=== PATIENT | female | born 1990 | race Caucasian/White ===

== ENCOUNTER 2020-11-14 13:41 | Outpatient (REF) | payer OTHER, SELFPAY ==
[2020-11-16 09:30] LABS: HBS Num1 11.84 mIU/mL (0-7.99)
[2020-11-16 10:28] LABS: HBS Num3 11.73 mIU/mL (0-7.99); ~Hepatitis B Surface Antibody GRAYZONE (Nonreactive)
== END 2020-11-14 13:42 | disposition home or self-care (01) ==
LOC: HO.LAB 13:41
PROVIDERS: PCP Internal Medicine; Visit Provider Internal Medicine
DX: Z00.00 Encounter for general adult medical examination without abnormal findings (principal)
CPT/HCPCS: 36415; 86706

== ENCOUNTER 2020-11-16 06:30 | Outpatient (REF) | payer OTHER, SELFPAY ==
[2020-11-18 18:46] LABS: TS Negative Control Passed; TS Panel A 0; TS Panel B 0; TS Positive Control Passed; TSpotTB Negative (SeeBelow)
== END 2020-11-16 06:31 | disposition home or self-care (01) ==
LOC: HO.LAB 06:30
PROVIDERS: PCP Internal Medicine; Visit Provider Internal Medicine
DX: Z11.1 Encounter for screening for respiratory tuberculosis (principal)
CPT/HCPCS: 36415; 86481

== ENCOUNTER 2021-07-14 09:00 | Outpatient (RCR) | payer OTHER, SELFPAY ==
--- NOTE | 2021-06-28 15:53 | MHC.PT.EP ---
[facility] [place] Office [place] Office [place] [facility] [address] Marcela Knott [address] [phone] F: [phone] F: [phone] F: [phone] F: [phone] Physical Therapy Plan of Care Date of Evaluation: Date of Surgery: BLOOD PATCH ABOUT END OF MAY AT [facility] Diagnosis: DORSALGIA. Assessment: Pt IS 31 YO F REFERRED TO PT FROM DR CLAY WITH DORSALGIA. Pt REPORTS SHE HAD A BABY (04/28/21..GIRL) WITH A COMPLICATED EPIDURAL PROCEDURE AND POST ANGEL, WAS SENT HOME BUT DAYS LATER HAVING SIGNIF ANGEL WENT TO ER, SENT TO [facility] TREATED FOR PRE-ECLEMPSIA AND HAD A BLOOD PATCH DONE (THIS ABOUT 1 MONTH POST ), HAD SPENT MUCH OF THE TIME IN BED). SINCE BLOOD PATCH, LESS ANGEL BUT NOW LBP (FROM WHERE HAD EPIDURAL AND BELOW) AND L LE SXS. PRESENTS WITH L LE WEAKNESS, TRANDLENBERG GT AND PELVIC ASYMM WITH LIMITED TRUNK AND LE FLEXIBILITY AND PAIN/PARESTHESIA AFFECTING ADLS. 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 IS TO HAVE TELEVISIT WITH NEURO TOMORROW AND IS SUPPOSED TO HAVE LS X RAY. SHOULD BENEFIT FROM PT TO ADDRESS THESE ISSUES Frequency and Duration: The patient will be seen 2X/WK X 6 WKS Short Term Goals: 1. CENTRALIZE SXS 2. IMPROVED GT PATTERN (LESS LIMP) 3. Pt TO PERF 2-3 TASKS WITH PROPER BODY MECH (FOR INFANT CARE AND RTW) Skilled Nursing Goals: 1. RTW 2. DECREASED LBP AT LEAST 50% WITH ADLS 3. I HEP WITH DC EX PLAN 4. TRUNK ROM WNLS FOR FLEX AND EXT Treatment Plan: Modalities to reduce pain, spasms and effusion. Manual therapy to restore motion and function. Therapeutic exercise to improve strength and flexibility. Neuromuscular re-education for posture and balance. Therapeutic activities to return to functional activities of daily living. Electronically signed by: ALVARO CHAMPION PT Please sign and return to therapist. Thank you for your referral.
--- NOTE | 2021-08-14 14:06 | MHC.PT.DC ---
[facility] [place] Office [place] Office [place] [facility] [address] Marcela Knott [address] [phone] F: [phone] F: [phone] F: [phone] F: [phone] Physical Therapy Discharge Report Diagnosis: DORSALGIA. Date of Surgery: BLOOD PATCH ABOUT END May AT [facility] Date of Evaluation: 06/28/21 Date of Discharge: 07/21/21 Treatments to Date: 5 Cancellations to Date: No Shows to Date: Discharge Status: Improved Function Independent with HEP Patient Elected to Stop Discharge Summary: AT LAST APPT PER HUMBERTO HARMON PT, DPT.'Pt educated re: self care stretching balance and proper mechanics in relationship to sx. Pt demonstrated carryover with home program following education. Held on US due to global area not specific to one region of L lumbar. Educated re: self care/stretching program.' Pt THEN CANCELLED NEXT APPT BECAUSE HER BABY WAS SICK. THEN CALLED ON 07/21 TO DC SELF (GOING BACK TO WORK) Electronically signed by: ALVARO CHAMPION PT Please sign and return to therapist. Thank you for your referral.
== END 2021-08-14 14:07 | disposition home or self-care (01) ==
LOC: HO.PTWFD 09:00
PROVIDERS: PCP Internal Medicine; Visit Provider Internal Medicine
DX: M54.9 Dorsalgia, unspecified (principal)
CPT/HCPCS: 97014; 97110; 97140; 97162; 97530; 97535

== ENCOUNTER 2024-02-24 10:29 | Outpatient (AMB) | payer OTHER, SELFPAY ==
--- NOTE | 2024-02-24 10:29 | MHC.PC.OV ---
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: Not Required per policy Accompanied by: Self / Same As Patient Allergies No Known Allergies Allergy (Verified 02/24/24 10:30) Medication List - Last Reconciled 02/25/24 by Denis Arias MD aspirin (Neela Low Dose Aspirin) 81 mg PO ONCE labetalol 100 mg PO BID magnesium oxide 500 mg PO DAILY Tobacco use date assessed: 02/24/24 Dental Screening Dental Screen Date: 02/24/24 Did you have a dental visit in the last 12 months?: Yes Did you have a dental problem in the last 6 months where you did not have access to dental care?: No Was dental information given to patient?: Patient has dentist HPI Fatigue HPI Details fatigue for a few months PFSH Surgical History H/O LEEP Family History Father Asthma Hypertension Mother Hypertension Diabetes Maternal Grandmother Diabetes Maternal Grandfather Myocardial infarction Sister Cirrhosis of liver Social History Housing: House Alcohol intake: never Patient Tobacco Use Status: Never used Tobacco e-Cigarette/Vaping Use: Never Used Second Hand Smoke Exposure: No service: No Current occupational status: employed Cognitive needs: No Hearing needs: No Vision needs: No Questionnaire PHQ-9 Over the last 2 weeks, how often have you been bothered by any of the following problems? 1. Little interest or pleasure in doing things: not at all 2. Feeling down, depressed, or hopeless: not at all 3. Trouble falling or staying asleep, or sleeping too much: not at all 4. Feeling tired or having little energy: not at all 5. Poor appetite or overeating: not at all 6. Feeling bad about yourself - or that you are a failure or have let yourself or your family down: not at all 7. Trouble concentrating on things, such as reading the newspaper or watching television: not at all 8. Moving or speaking so slowly that other people could have noticed. Or the opposite - being so fidgety or restless that you have been moving around a lot more than usual: not at all 9. Thoughts that you would be better off or of hurting yourself in some way: not at all Total score: 0 Depression Screening Interpretation: Negative Depression Screening Done: Yes 00527 - PHQ-9 Billing: Yes Source: Developed by Drs. Willis Matthews, Serenity Baldwin, Toby Dale and colleagues, with an educational abisai from [employer]. Thrive Questionnaire Date Thrive assessed: 02/24/24 I am a: Patient What is your living situation today?: I have a steady place to live Within the past 12 months, did the food you bought not last and you didn't have the money to get more?: Never true Within the past 12 months, did you worry whether your food would run out before you got money to buy more?: Never true Do you have trouble paying for medicines?: No Do you have trouble getting transportation to medical appointments?: No Do you have trouble paying your heating and electricity bill?: No Do you have trouble taking care of your child, family member or friend?: No Do you have trouble with day-to-day activities such as bathing, preparing meals, shopping, managing finances, etc.?: No Are you currently unemployed and looking for a job?: No Are you interested in more education?: No Please select the resources that you would like help with: None THRIVE Score: 0 AUDIT C Alcohol Use Questionnaire (AUDIT-C) 1. How often do you have a drink containing alcohol?: Never 3. How often do you have six or more drinks on one occasion?: Never Total Score: 0 Score Reviewed/Action Taken: Yes ALLAN-7 AMB Questionnaire ALLAN-7 Date ALLAN - 7 assessed: 02/24/24 Feeling nervous, anxious, or on edge: 0 = Not at all Not being able to stop or control worryin = Not at all Worrying too much about different things: 0 = Not at all Trouble relaxin = Not at all Being so restless that it is hard to sit still: 0 = Not at all Becoming easily annoyed or irritable: 0 = Not at all Feeling afraid as if something awful might happen: 0 = Not at all Total ALLAN-7 score (0-4 normal; 5-9 mild; 10-14 moderate; 15-21 severe): 0 Source: Developed by Drs. Willis Matthews, Serenity Baldwin, Toby Dale and colleagues, with an educational abisai from [employer]. ALLAN-7 Assessment Billing ALLAN-7 Assessment Tool: ALLAN-7 Assessment 38062 Review of Systems Const Denies chills, Denies headache(s) and Denies weight loss ENT Denies headache(s) Card Denies chest pain, Denies syncope, Denies irregular heart rhythm and Denies dyspnea Resp Denies chest congestion, Denies cough and Denies dyspnea GI Denies abdominal pain, Denies change in stool character, Denies nausea and Denies vomiting Musc Denies deformity and Denies joint swelling Neuro Denies syncope and Denies headache(s) Physical exam (Primary Care) Vital Signs: Last Vital Signs Pulse 69 02/24/24 10:30 BP 110/62 02/24/24 10:30 Pulse Ox 99 02/24/24 10:30 Oxygen Delivery Method Room Air 02/24/24 10:30 BMI result Body Mass Index 27.0 Tobacco/Smoking Status: Tobacco use Status Tobacco use date assessed 02/24/24 02/24/24 10:31 Patient Tobacco Use Status Never used Tobacco 02/24/24 10:31 Tobacco use type 06/21/21 12:40 e-Cigarette/Vaping Use Never Used 02/24/24 10:31 PHQ-9: PHQ-9 Score PHQ-9: Total score 0 02/24/24 10:31 Depression Screening Interpretation: Negative Thrive Assessment: Date of Thrive Assessment Date Thrive assessed 02/24/24 02/24/24 10:31 Const General: cooperative, comfortable, no acute distress and alert Neck Neck: Yes no lymphadenopathy Thyroid: Thyroid normal Resp Effort & Inspection: normal respiratory effort Auscultation: clear to auscultation bilaterally Percussion: percussion normal Cardio Jugular venous distension: no JVD Palpation: normal PMI Rate: regular rate Rhythm: regular rhythm Heart sounds: S1 normal heart sound present and S2 normal heart sound present GI Inspection: Yes normal to inspection Palpation (GI): No hepatosplenomegaly present Skin General skin exam: no rashes or lesions noted Extrem General: Yes no clubbing, cyanosis or edema Assessment and Plan Assessment & Plan (1) Fatigue: Code(s): R53.83 - Other fatigue Plan: do labs Orders: Orders Complete Blood Count Auto Diff 02/24/24 Z13.0 - Encounter for screening for diseases of the blood and blood-forming organs and certain disorders involving the immune mechanism Comprehensive [place]. Panel Fast 02/24/24 Z13.9 - Encounter for screening, unspecified Thyroid Stimulating Hormone 02/24/24 Z13.29 - Encounter for screening for other suspected endocrine disorder Lipid Panel 02/24/24 Z13.220 - Encounter for screening for lipoid disorders Coding Level of Care Code Est Pt Level 3 (28619) Diagnoses Fatigue R53.83 Additional Codes ALLAN-7 Assessment Billing - ALLAN-7 Assessment Tool: ALLAN-7 Assessment 12790 ([id number])
[2024-02-24 10:30] VITALS: BP 110/62; PULSE 69; O2SAT 99; BMI 27.0
== END 2024-02-24 10:51 | disposition home or self-care (01) ==
PROVIDERS: PCP Internal Medicine; Visit Provider Internal Medicine
DX: R53.83 Other fatigue (principal)
CPT/HCPCS: 99213

== ENCOUNTER 2024-02-24 13:00 | Outpatient (REF) | payer OTHER, SELFPAY ==
[2024-02-24 13:10] LABS: MANUAL DIFF FLAG NO
[2024-02-24 13:44] LABS: Basophils Percent Auto 0.3 % (0-2); Eosinophils Absolute Auto 0.1 X10*3/uL (0.0-0.4); Eosinophils Percent Auto 1.3 % (0-4); Hematocrit 42.6 % (37.0-47.0); Hemoglobin 14.5 g/dl (12.0-16.0); Imm Gran Abs Auto 0.02 X10*3/uL (0.00-0.03); Imm Gran Pct Auto 0.3 % (0.0-0.4); Lymphocytes Absolute Auto 3.1 X10*3/uL (1.2-4.9); Lymphocytes Percent Auto 39.5 % (20-40); Mean Corpuscular Hemoglobin 30.2 pg (27.0-33.0); Mean Corpuscular Volume 88.8 fL (80.0-98.0); Monocytes Absolute Auto 0.6 X10*3/uL (0.1-1.2); Monocytes Percent Auto 7.9 % (2-11); Neutrophils Absolute Auto 3.9 x10*3/uL (2.0-8.3); Neutrophils Percent Auto 50.7 % (45-73); Platelet Count 242 X10*3/uL (160-400); Red Cell Distribution Width 12.2 % (11.0-16.0); White Blood Count 7.8 X10*3/uL (4.8-10.8)
[2024-02-24 14:14] LABS: Alanine Aminotransferase 13 U/L (0-31); Albumin Level 4.2 g/dL (3.5-5.0); Alkaline Phosphatase 69 U/L (39-117); Anion Gap 10 (12-20); Aspartate Amino Transferase 16 U/L (5-31); Bilirubin Total 0.4 mg/dL (0.0-1.0); Blood Urea Nitrogen 11 mg/dL (9-16); Calcium 9.6 mg/dL (8.4-10.2); Carbon Dioxide 27 mmol/L (22-29); Chloride 106 mmol/L (96-108); Cholesterol 173 mg/dL (<200); Estimated Glomerular Filt Rate > 60; Glucose Fasting 91 mg/dL (60-99); HDL Cholesterol 52 mg/dL (>40); LDL Cholesterol Calculated 105 mg/dL (<100); Potassium 3.5 mmol/L (3.3-5.1); Sodium 139 mmol/L (135-145); Total Protein 7.2 g/dL (6.5-8.0); Triglycerides 82 mg/dL (<150)
[2024-02-24 14:30] LABS: Thyroid Stimulating Hormone 1.29 uIU/mL (0.32-4.0)
== END 2024-02-24 13:01 | disposition home or self-care (01) ==
LOC: HO.LAB 13:00
PROVIDERS: PCP Internal Medicine; Visit Provider Internal Medicine
DX: Z13.9 Encounter for screening, unspecified (principal); Z13.29 Encounter for screening for other suspected endocrine disorder; Z13.0 Encounter for screening for diseases of the blood and blood-forming organs and certain disorders involving the immune mechanism; Z13.220 Encounter for screening for lipoid disorders
CPT/HCPCS: 36415; 80053; 80061; 84443; 85025

== ENCOUNTER 2024-05-01 09:38 | Outpatient (REF) | payer OTHER, SELFPAY ==
--- NOTE | 2024-05-01 | EMG_ITS ---
Chief complaint: Bilateral hand numbness especially with sleep Reason for referral: Evaluate for Carpal Tunnel Syndrome Referred by: Dr. Arias Procedure done: Bilateral upper extremities NCS The limb temperature was monitored continuously and remained between 32-36 degrees C during the performance of the NCS. Nerve Conduction Studies Anti Sensory Summary Table ?Stim Site NR Onset (ms) Norm Onset (ms) Peak (ms) Norm Peak (ms) O-P Amp (?V) Norm O-P Amp Site1 Site2 Delta-0 (ms) Dist (cm) Shahbaz (m/s) Norm Shahbaz (m/s) Left Median Anti Sensory (2nd Digit) Wrist ? 2.7 3.6 <3.6 59.1 >10 Wrist 2nd Digit 2.7 14.0 52 Right Median Anti Sensory (2nd Digit) Wrist ? 2.8 3.5 <3.6 74.0 >10 Wrist 2nd Digit 2.8 14.0 50 Left Ulnar Anti Sensory (5th Digit) Wrist ? 2.3 2.9 <3.7 112.2 >15.0 Wrist 5th Digit 2.3 14.0 61 Right Ulnar Anti Sensory (5th Digit) Wrist ? 2.2 2.8 <3.7 90.5 >15.0 Wrist 5th Digit 2.2 14.0 64 Motor Summary Table ?Stim Site NR Onset (ms) Norm Onset (ms) O-P Amp (mV) Norm O-P Amp iAmp (mV) Amp (1st) (%) Site1 Site2 Delta-0 (ms) Dist (cm) Shahbaz (m/s) Norm Shahbaz (m/s) Left Median Motor (Abd Poll Brev) Wrist ? 3.5 <3.9 10.1 >4.5 12.4 100.0 Elbow Wrist 3.7 19.0 51 >45 Elbow ? 7.2 9.8 12.0 97.0 Right Median Motor (Abd Poll Brev) Wrist ? 3.7 <3.9 7.3 >4.5 8.5 100.0 Elbow Wrist 3.6 18.0 50 >45 Elbow ? 7.3 7.3 8.4 100.0 Left Ulnar Motor (Abd Dig Minimi) Wrist ? 2.8 <3.0 8.8 >5 10.8 100.0 B Elbow Wrist 2.6 16.5 63 >45 B Elbow ? 5.4 8.6 10.8 97.7 A Elbow B Elbow 1.4 10.0 71 >45 A Elbow ? 6.8 8.8 11.1 100.0 Right Ulnar Motor (Abd Dig Minimi) Wrist ? 2.8 <3.0 8.9 >5 10.6 100.0 B Elbow Wrist 3.1 19.0 61 >45 B Elbow ? 5.9 8.8 10.5 98.9 A Elbow B Elbow 1.2 10.0 83 >45 A Elbow ? 7.1 8.7 10.5 97.8 Comparison Summary Table ?Stim Site NR Peak (ms) Norm Peak (ms) P-T Amp (?V) Site1 Site2 Delta-P (ms) Norm Delta (ms) Left Median/Radial Dig I Comparison (Digit 1 - 10cm) Median ? 2.6 <2.9 204.6 Median Radial 0.0 Radial ? 2.6 <2.8 63.0 Right Median/Radial Dig I Comparison (Digit 1 - 10cm) Median ? 3.2 <2.9 22.7 Median Radial 0.7 Radial ? 2.5 <2.8 17.1 FINDINGS: Significant interlatency difference between right median and radial sensory nerves, 0.7. Otherwise rest of motor and sensory nerves tested were within normal. IMPRESSION: 1. This is a minimally abnormal NCS. 2. 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 3. There is no electrodiagnostic evidence for ulnar neuropathy bilateral, or median neuropathy on left. Thank you for your kind referral. Mara Fox MD, DARIUSZ Board Certified, [place] [employer] and Rehabilitation (ABPMR) Board Certified, [place] Board of Electrodiagnostic Medicine (ABEM) [facility]
== END 2024-05-01 09:39 | disposition home or self-care (01) ==
LOC: HO.NEURO 09:38
PROVIDERS: PCP Internal Medicine; Visit Provider Internal Medicine
DX: R20.2 Paresthesia of skin (principal)
CPT/HCPCS: 95911

== ENCOUNTER → 2024-05-01 09:40 | Outpatient (BNV) | payer OTHER, SELFPAY | PROVIDERS: PCP Internal Medicine; Visit Provider Physical Medicine & Rehabilitation | DX: G56.11 Other lesions of median nerve, right upper limb (principal) | CPT/HCPCS: 95911 ==